=== PATIENT | female | born 1960 | race African-American/Black ===

== ENCOUNTER → 2017-06-01 | Outpatient (CLI) | payer OTHER ==
[~2017-06-01] MED LIST: AMLO-145; BENA40TA41 PO; DOCU250C58; GLIP5TAB13; HYDR25TA6 PO; LEVA15HF6; LEVO25TA53 PO; METF500T4 PO; NIT4 SL; OMEP20TA42 PO
--- NOTE | 2017-06-01 15:01 | RADRPT ---
PROCEDURE: Right knee radiographs. CLINICAL INDICATION: Right knee pain. TECHNIQUE: Four views. Weight bearing. Frontal, lateral, oblique, and patellar view. COMPARISON: No prior studies are available for comparison. FINDINGS: There is no fracture or dislocation. The soft tissues are normal. There are degenerative changes with osteophytes arising from all 3 joint compartment margins. There is lateral joint compartment narrowing, subarticular sclerosis, and deformity. There is associated v algus deformity. There is no lytic or blastic lesion. There is no radiopaque foreign body. IMPRESSION: 1. Severe degenerative changes of the right knee with associated valgus deformity. RPTAT: QQ .Ronnie Low MD, MD Date Time Electronically viewed and signed by .Ronnie Low MD, MD on 06/01/2017 15:01 .R/
--- NOTE | 2017-06-01 18:35 | HKNOTE ---
DATE OF SERVICE: 06/01/2017 CHIEF COMPLAINT: Right knee pain. HISTORY OF THE PRESENT ILLNESS: This is a 56-year-old female who was previously evaluated in my [place] office for right knee osteoarthritis. The patient was scheduled for 2 previous surgical dates and cancelled her surgery. She is here today and states that she is not ready for a total knee arthroplasty. She is using a walker for ambulation. Her pain is controlled. She denies any groin or back pain. GAIT: Antalgic gait. Use of an assist device. Right knee exam: Neutral alignment, tender over the medial and lateral joint line, 0 to 115 degrees of painful range of motion. Stable to varus valgus stress. Negative anterior and posterior drawer. Negative Rocky's. MOTOR STRENGTH: 5/5 hamstrings, quadriceps, tibialis anterior, gastroc soleus and perineal. X-rays of the right knee previews: Advanced degenerative joint disease of the right knee with bone on bone arthritic changes of the lateral compartment. There are marginal osteophytes and subchondral sclerosis. IMPRESSION: A 56-year-old female with advanced tricompartmental osteoarthritis of the right knee. PLAN: Ms. Harrison is not ready for right total knee arthroplasty. She is previously scheduled for other surgical dates and canceled. She will follow up as needed in the future. Dictated By: EFREN WORKMAN/BRITANY Conf#: [id number] DID#: [id number] MTDD
== END | disposition home or self-care (01) ==
LOC: HKI 14:47
PROVIDERS: ATTEND Orthopaedic Surgery Adult Reconstructive Orthopaedic Surgery
DX: M17.11 Unilateral primary osteoarthritis, right knee (principal)
CPT/HCPCS: 73564; Z7500; G0463

== ENCOUNTER 2017-12-11 06:36 | Inpatient (IN) | END 2017-12-16 22:00 | DRG 470 ==

== ENCOUNTER 2019-06-20 10:17 | Emergency (ER) | payer OTHER ==
[~2019-06-20] VITALS: Ht 165.1 cm; Wt 57.7 kg
[~2019-06-20 10:17] MED LIST changes: +ASPI-1046 PO; +ATEN50TA PO; -BENA40TA41 PO; +BENA40TA56 PO; +HYDR-4011 PO; +IBUP-1542 PO; -LEVA15HF6; -LEVO25TA53 PO; +LEVO25TA6 PO; +MELO7.5T38 PO; +METF-849 PO; -METF500T4 PO; -NIT4 SL; +NITR0.4T39 SL; +SIMV5TAB14 PO
[2019-06-20 10:21] VITALS: BP 139/84; PULSE 59; RESP 17; Ht 165.1 cm; Wt 57.7 kg
[2019-06-20] MEDS ORDERED: HYDROCODONE/APAP (5/325) TAB PO ONE (11:30)
== END 2019-06-20 11:59 | disposition home or self-care (01) ==
LOC: FTE 10:17
DX: M54.9 Dorsalgia, unspecified (principal); E11.9 Type 2 diabetes mellitus without complications; Z79.82 Long term (current) use of aspirin; Z79.84 Long term (current) use of oral hypoglycemic drugs; Z87.891 Personal history of nicotine dependence
CPT/HCPCS: Z7502; Z7610; 99283